=== PATIENT | female | born 1945 | race Caucasian/White ===

== ENCOUNTER 2020-12-09 12:36 | Emergency (ER) | payer MEDICARE ==
[~2020-12-09] VITALS: Ht 157.5 cm; Wt 63.0 kg
--- NOTE | 2020-12-09 13:00 | NUR ---
PT CAME FROM URGENT CARE, WHERE SHE C/O NUMBNESS TO L ARM & LEG, DIFFICULTY AMBULATING AND HEADACHE. PT REFUSED AMBULANCE TRANSFER. PT STILL C/O L ARM & LEG NUMBNESS BUT NO WEAKNESS NOTED AND NO OTHER STROKE SYMPTOMS NOTED. PT DENIES HX CVA TO THIS RN; STATES SHE USED TO GET MIGRAINES "WHERE I WOULD PASS OUT". HX THYROID PROBLEMS. RECENTLY MOVED HERE FROM THE [place] [facility]A AND STARTED SMOKING 1 PACK/DAY AGAIN. NO LOCAL PCP. STATES, "I'VE BEEN MANAGING THINGS MYSELF FOR SO LONG".
--- NOTE | 2020-12-09 13:10 | NUR ---
SPO2 WAS 91% ON RA. PLACED ON 2L O2 NC.
[2020-12-09 13:17] LABS: MEAN CORPUSCULAR HEMOGLOBIN 31.6 pg (27.0-34.8); PLATELET COUNT 217 x10^3/uL (130-400); RED BLOOD COUNT 4.88 x10^6/uL (3.82-5.3); RED CELL DISTRIBUTION WIDTH 14.1 % (9.6-15.2)
[2020-12-09 13:24] LABS: ALANINE AMINOTRANSFERASE 18 U/L (12-78); ALBUMIN 3.6 g/dL (3.4-5.0); ANION GAP 6 mmol/L (5-15); CALCIUM 9.4 mg/dL (8.5-10.1); CHLORIDE 107 mmol/L (98-107); CREATININE 0.78 mg/dL (0.55-1.02)
[2020-12-09 13:25] LABS: INTERNATIONAL NORMALIZED RATIO 1.03 (0.93-1.1)
[2020-12-09 13:26] LABS: ALKALINE PHOSPHATASE 73 U/L (45-117); BILIRUBIN,TOTAL 0.5 mg/dL (0.2-1.0); TOTAL PROTEIN 8.1 g/dL (6.4-8.2)
--- NOTE | 2020-12-09 13:56 | NUR ---
ERP AT BS DOING NEURO EXAM.
[2020-12-09 14:02] LABS: BASOS#(MANUAL) 0.08 x10^3/uL (0-0.1); BASOS% (MANUAL) 1 % (0-1); SEG#(MANUAL) 6.38 x10^3/uL (1.8-6.8); SEGS% (MANUAL) 76 % (42-75)
[2020-12-09] MEDS ORDERED: OMNIPAQUE 350 MG/ML, 100ML BOTTLE ONE (14:02)
[2020-12-09 14:03] LABS: EOS#(MANUAL) 0.17 x10^3/uL (0.0-0.4); EOS% (MANUAL) 2 % (1-7); LYMPH#(MANUAL) 1.01 x10^3/uL (1-3.4); LYMPHS% (MANUAL) 12 % (22-44); MONOS#(MANUAL) 0.76 x10^3/uL (0.3-2.7); MONOS% (MANUAL) 9 % (2-9)
[2020-12-09 14:04] LABS: <PLATELET ESTIMATE> ADEQUATE; ANISOCYTOSIS 1+; OVALOCYTES 1+
[2020-12-09 14:05] LABS: LARGE PLATELETS 1+
--- NOTE | 2020-12-09 14:35 | NUR ---
PT SLEEPING IN GURNEY, AWAKENS TO VOICE. ERP AWARE OF CAROTID ANGIOGRAM RESULTS.
--- NOTE | 2020-12-09 16:04 | NUR ---
PT RETURNS FROM MRI.
--- NOTE | 2020-12-09 16:19 | NUR ---
CHART UP FOR RECHECK
--- NOTE | 2020-12-09 17:50 | NUR ---
PT AMBULATORY TO [facility]. ERP WAS IN TO SPEAK WITH PT. PT UNDERSTANDS PLAN FOR DISCHARGE.
[2020-12-09] MEDS ORDERED: ACETAMINOPHEN 500 MG TABLET PO ONE (18:00)
--- NOTE | 2020-12-09 18:25 | NUR ---
PT DISCHARGED BY JONI VASQUEZ.
[2020-12-09 18:26] VITALS: BP 121/74
== END 2020-12-09 18:28 | disposition home or self-care (01) ==
LOC: ED 18:25
DX: I77.1 Stricture of artery (principal); R53.1 Weakness; R51.9 Headache, unspecified; R94.31 Abnormal electrocardiogram [ECG] [EKG]
CPT/HCPCS: 36415; 70450; 70496; 70498; 70551; 80053; 85025; 85610; 85730; 93005; 99285; Q9967